=== PATIENT | female | born 1960 | race American Indian/Alaskan Native ===

== ENCOUNTER 2019-03-24 18:54 | Emergency (ER) | payer OTHER ==
[2019-03-24 19:03] VITALS: BP 143/90
[2019-03-24] MEDS ORDERED: FLEXERIL PO ONE (20:08)
[2019-03-24] MEDS ORDERED: IBUPROFEN PO ONE (20:08)
[2019-03-24] MEDS ORDERED: TYLENOL PO ONE (20:08)
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
--- NOTE | 2019-03-24 21:35 | Cat Scan Report ---
CT head without contrast CLINICAL HISTORY: Headache, trauma FINDINGS: No previous exams available for comparison. The beam hardening degrades image quality. Joshi segundo, the brain parenchyma appears to demonstrate appropriate attenuation. There are small incidental foci of calcification within the basal ganglia. There is no clear CT evidence of acute intracranial h emorrhage or significant mass effect at. The ventricular system is appropriate in size and configurat ion. The visualized paranasal sinuses are clear. The calvarium appears intact. All CT scans at this [facility] are performed using the CT dose reduction for ALARA by means of automated exposure control. IMPRESSION: There is no CT evidence of acute intracranial process. Signer Name: Murali Lopez MD Signed: 03/24/2019 9:31 PM Workstation Name: [id number]
--- NOTE | 2019-03-24 21:40 | Cat Scan Report ---
CT cervical spine without contrast CLINICAL HISTORY: Neck pain, trauma FINDINGS: No previous exams available for comparison. There is slight curvature of the cervical spine , convex toward the left as well as mild reversal of the cervical lordosis. However, there is no han r CT evidence of acute fracture or subluxation involving the cervical spine. The right facet joint hypertrophy at C3-4 results in mild right neural foraminal narrowing at. There is mild to moderate right foraminal narrowing at C4-5. The spondylosis encroaches on the right latera l recess. The posterior spondylosis at C5-6 appears to mildly flatten the ventral cord at. There is moderate ri ght neural foraminal narrowing. Mild narrowing is seen on the left. The disc bulge at C6-7 effaces th e ventral subarachnoid space at. There is mild left foraminal narrowing. No prevertebral soft tissue fluid collections are identified. All CT scans at this location are performed using the CT dose reduc tion for ALARA by means of automated exposure control. IMPRESSION: There is no CT evidence of acute fracture involving the cervical spine at. There are multilevel degenerative changes as detailed above. Signer Name: Murali Lopez MD Signed: 03/24/2019 9:36 PM Workstation Name: [id number]
--- NOTE | 2019-03-24 21:46 | Cat Scan Report ---
CT lumbar spine without contrast CLINICAL HISTORY: Back pain, trauma. FINDINGS: No previous exams available for comparison. The lumbar spine demonstrate appropriate alignm ent without significant spondylolisthesis. There is no evidence of acute compression fracture. There is a horizontal linear lucency extending to the pars interarticularis of L5 at. There are adjac ent hypertrophic and sclerotic changes and this finding most likely reflects chronic process with spo ndylolysis at. More sclerotic appearance is seen on the left at. This finding a less likely represent s acute traumatic process and correlation would be needed given the history. The hypertrophic changes result in mild neural foraminal narrowing at L5-S1. The broad-based central disc bulge L4-5 mildly deforms the ventral thecal sac at. There is minimal fo raminal narrowing at. There are focal endplate changes anteriorly at L3-4. The diffuse a disc bulge a lso mildly deforms the thecal sac at. There is slight foraminal narrowing bilaterally. The disc bulge at L2-3 mildly flattens the ventral thecal sac. There is no significant foraminal narr owing at. The L1-2 level appears unremarkable. All CT scans at this location are performed using the CT dose reduction for ALARA by means of automated exposure control. IMPRESSION: The findings are most consistent with right spondylolysis at L5-S1 as detailed above. This finding is less likely reflects an acute traumatic process and correlation would be needed. There are multilevel degenerative changes and disc bulges involving the lumbar spine, also described above. Signer Name: Murali Lopez MD Signed: 03/24/2019 9:42 PM Workstation Name: [id number]
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
== END 2019-03-24 22:42 | disposition home or self-care (01) ==
LOC: ED 18:54
DX: S29.011A Strain of muscle and tendon of front wall of thorax, initial encounter (principal); M62.830 Muscle spasm of back; M62.838 Other muscle spasm; I10 Essential (primary) hypertension; E11.9 Type 2 diabetes mellitus without complications; Z90.710 Acquired absence of both cervix and uterus; V49.9XXA Car occupant (driver) (passenger) injured in unspecified traffic accident, initial encounter; Y93.89 Activity, other specified; Y92.89 Other specified places as the place of occurrence of the external cause; Y99.8 Other external cause status
CPT/HCPCS: 70450; 71046; 72125; 72128; 72131